=== PATIENT | male | born 1970 ===

== ENCOUNTER 2018-08-28 18:22 | Outpatient (REF) | payer OTHER, SELFPAY ==
[2018-08-28 22:26] LABS: Anion Gap 9.6 mmol/L (3-11); BUN 20 mg/dL (7-18); CO2 27.4 mmol/L (21.0-32.0); CREATININE 1.04 mg/dL (0.70-1.30); Calcium 9.3 mg/dL (8.5-10.1); Chloride 102 mmol/L (98-107); Glucose 107 mg/dL (70-100); Sodium 139 mmol/L (136-145)
[2018-08-28 22:56] LABS: COMMENT (LAB VIEW ONLY) 146.31 mg/dL; Microalb ug/mg Crea 4.6 ug/mg Cr
== END 2018-08-28 18:42 ==
LOC: NCHCN 18:22
PROVIDERS: PCP Family Medicine; Visit Provider Registered Nurse
DX: I10 Essential (primary) hypertension (principal)
CPT/HCPCS: 80048; 82043; 82570

== ENCOUNTER 2019-01-05 18:17 | Outpatient (REF) | payer OTHER, SELFPAY ==
[2019-01-05 21:27] LABS: Anion Gap 12.3 mmol/L (3-11); BUN 18 mg/dL (7-18); CO2 24.7 mmol/L (21.0-32.0); CREATININE 1.08 mg/dL (0.70-1.30); Calcium 8.9 mg/dL (8.5-10.1); Chloride 106 mmol/L (98-107); Glucose 120 mg/dL (70-100); Potassium 3.9 mmol/L (3.5-5.1); Sodium 143 mmol/L (136-145)
== END 2019-01-05 18:37 ==
LOC: NCHCN 18:17
PROVIDERS: PCP Family Medicine; Visit Provider Registered Nurse
DX: I10 Essential (primary) hypertension (principal)
CPT/HCPCS: 80048

== ENCOUNTER 2019-04-13 18:05 | Outpatient (REF) | payer OTHER, SELFPAY ==
[2019-04-13 21:34] LABS: Calculated LDL 83 mg/dL; Cholesterol 165 mg/dL (<200); HDL Cholesterol 34 mg/dL (40-60); Triglyceride 242 mg/dL (<150)
== END 2019-04-13 18:25 ==
LOC: NCHCN 18:05
PROVIDERS: PCP Family Medicine; Visit Provider Registered Nurse
DX: Z00.00 Encounter for general adult medical examination without abnormal findings (principal); I10 Essential (primary) hypertension; F17.200 Nicotine dependence, unspecified, uncomplicated
CPT/HCPCS: 80061

== ENCOUNTER 2020-08-03 17:13 | Outpatient (REF) | payer OTHER, SELFPAY ==
[2020-08-03 22:39] LABS: Anion Gap 10.7 mmol/L (3-11); BUN 17 mg/dL (7-18); CO2 27.3 mmol/L (21.0-32.0); CREATININE 1.1 mg/dL (0.70-1.30); Chloride 105 mmol/L (98-107); Glucose 93 mg/dL (74-106); Potassium 3.9 mmol/L (3.5-5.1); Sodium 143 mmol/L (136-145)
[2020-08-03 22:43] LABS: Hemoglobin A1C 5.8 % (<5.7)
[2020-08-05 09:56] LABS: Hepatitis C Ab w Rflx HCV PCR Negative (Negative)
== END 2020-08-03 17:14 | disposition home or self-care (01) ==
LOC: NCHCN 17:13
PROVIDERS: PCP Family Medicine; Visit Provider Registered Nurse
DX: I10 Essential (primary) hypertension (principal); E66.9 Obesity, unspecified; Z11.59 Encounter for screening for other viral diseases
CPT/HCPCS: 80048; 86803; 83036

== ENCOUNTER 2021-09-07 17:09 | Outpatient (REF) | payer OTHER, SELFPAY ==
[2021-09-07 21:12] LABS: ALT 35 U/L (16-63); AST 21 U/L (15-37); Albumin 4.3 g/dL (3.4-5.0); Alkaline Phosphatase 88 U/L (46-116); Anion Gap 8.1 mmol/L (3-11); BUN 20 mg/dL (7-18); Bilirubin, Total 0.6 mg/dL (0.2-1.0); CO2 25.9 mmol/L (21.0-32.0); CREATININE 1.1 mg/dL (0.70-1.30); Calcium 9.2 mg/dL (8.5-10.1); Chloride 103 mmol/L (98-107); Glucose 101 mg/dL (74-106); Potassium 3.9 mmol/L (3.5-5.1); Sodium 137 mmol/L (136-145); Total Protein 7.4 g/dL (6.4-8.2)
== END 2021-09-07 17:10 | disposition home or self-care (01) ==
LOC: NCHCN 17:09
PROVIDERS: PCP Family Medicine; Visit Provider Registered Nurse
DX: R73.03 Prediabetes (principal); I10 Essential (primary) hypertension
CPT/HCPCS: 80053; 83036

== ENCOUNTER 2022-03-08 17:47 | Outpatient (REF) | payer OTHER, SELFPAY ==
[2022-03-08 21:56] LABS: Anion Gap 8.6 mmol/L (3-11); BUN 16 mg/dL (7-18); CO2 27.4 mmol/L (21.0-32.0); CREATININE 1.1 mg/dL (0.70-1.30); Chloride 102 mmol/L (98-107); Estimated GFR 80.77 (mL/min/1.73m2); Glucose 101 mg/dL (74-106); Sodium 138 mmol/L (136-145)
[2022-03-08 22:26] LABS: Hemoglobin A1C 6.1 % (<5.7)
== END 2022-03-08 17:48 | disposition home or self-care (01) ==
LOC: NCHCN 17:47
PROVIDERS: PCP Family Medicine; Visit Provider Registered Nurse
DX: R73.03 Prediabetes (principal); I10 Essential (primary) hypertension
CPT/HCPCS: 80048; 83036

== ENCOUNTER 2022-12-26 18:52 | Outpatient (REF) | payer OTHER, SELFPAY ==
[2022-12-26 22:46] LABS: Anion Gap 11.7 mmol/L (3-11); BUN 16 mg/dL (7-18); CO2 24.3 mmol/L (21.0-32.0); CREATININE 1.1 mg/dL (0.70-1.30); Calculated LDL 59 mg/dL (<100); Chloride 101 mmol/L (98-107); Cholesterol 133 mg/dL (<200); Estimated GFR 80.27 (mL/min/1.73m2); Glucose 87 mg/dL (74-106); HDL Cholesterol 42 mg/dL (40-60); Potassium 3.6 mmol/L (3.5-5.1); Sodium 137 mmol/L (136-145); Triglyceride 164 mg/dL (<150)
[2022-12-26 22:49] LABS: Hemoglobin A1C 6.3 % (<5.7)
[2022-12-27 19:25] LABS: PSA, Screening 1.3 ng/mL (<=3.5)
[2022-12-28 09:50] LABS: Hepatitis C Ab w Rflx HCV PCR Negative (Negative)
[2022-12-28 10:19] LABS: HIV-1/2 Ag & Ab Screen Negative (Negative)
== END 2022-12-26 18:53 | disposition home or self-care (01) ==
LOC: NCHCN 18:52
PROVIDERS: PCP Family Medicine; Visit Provider Nurse Practitioner Family
DX: Z11.59 Encounter for screening for other viral diseases (principal); I10 Essential (primary) hypertension; E66.9 Obesity, unspecified; R73.03 Prediabetes
CPT/HCPCS: 80048; 80061; 84153; 86803; 87389; 83036

== ENCOUNTER 2023-08-28 17:54 | Outpatient (REF) | payer OTHER, SELFPAY ==
[2023-08-28 21:48] LABS: COMMENT (LAB VIEW ONLY) 259.93 mg/dL; Microalb ug/mg Crea 5.5 ug/mg Cr
== END 2023-08-28 17:55 | disposition home or self-care (01) ==
LOC: NCHCN 17:54
PROVIDERS: PCP Family Medicine; Visit Provider Nurse Practitioner Family
DX: I10 Essential (primary) hypertension (principal)
CPT/HCPCS: 82043; 82570

== ENCOUNTER 2023-12-12 08:12 | Outpatient (REF) | payer OTHER, SELFPAY ==
--- OUTSIDE RECORDS SUMMARY | 2023-12-12 08:13 | XMS_ITS | Clinical Summary ---
Author Organization [facility] Address [address] [place] [address] Care Team Providers Care Smoking Pipe Mounter Name Role Phone Deonte Esparza MD Primary Care Provider [phone] Allergies Active Allergy Reactions Criticality Noted Date Comments Penicillins Nausea And Vomiting 10/27/2015 Medications Medication Sig Dispensed Refills Start Date End Date Status gabapentin (NEURONTIN) 300 mg capsule Take 300 mg by mouth 3 times daily. Active ibuprofen (MOTRIN) 600 mg tablet Take 600 mg by mouth 3 times daily. Active amLODIPine (NORVASC) 5 mg tablet Take 5 mg by mouth daily. Active hydrochlorothiazide (HYDRODIURIL) 25 mg tablet Take 12.5 mg by mouth daily. Active valsartan (DIOVAN) 160 mg tablet Take 320 mg by mouth daily. Active Active Problems Problem Noted Date Diagnosed Date Low back pain radiating to right leg 10/27/2015 Surgical History Surgery Date Site/Laterality Comments HERNIA REPAIR X2 VASECTOMY Medical History Medical History Date Comments Hypertension Family History Medical History Relation Comments Cancer Mother Relation Status Comments Father Mother Alive Social History Tobacco Use Types Packs/Day Years Used Date Smoking Tobacco: Every Day Cigarettes 1 30 Smokeless Tobacco: Never Alcohol Use Standard Drinks/Week Comments No 0 (1 standard drink = 0.6 oz pur e alcohol) Interpersonal Safety Answer Date Record ed Physically Hurt Never 11/22/2019 Verbally Threaten Not on file 11/22/2019 Sex and Gender Information Value Date Recorded Sex Assigned at Not on file Gender Identity Not on file Sexual Orientation Not on file Obstetrics History Last Filed Vital Signs Vital Sign Reading Time Taken Comments Blood Pressure - - Pulse - - Temperature - - Respiratory Rate - - Oxygen Saturation - - Inhaled Oxygen Concentration - - Weight 111.1 kg (245 lb) 10/27/2015 1355 EDT Height 188 cm (6' 2) 10/27/2015 1355 EDT Body Mass Index 31.46 10/27/2015 1355 EDT Plan of Treatment Health Maintenance Due Date Last Done Comments Pneumococcal Immunization (1 of 2 - PCV) 08/27/1975 Hepatitis B Vaccine (1 of 3 - 19+ 3-dose series) 1988 COVID-19 Vaccine ( season) 2022 Hepatitis C Screen Completed 12/26/2022, 08/03/2020 Procedures Procedure Name Priority Date/Time Associated Diagnosis Comments HEPATITIS C AB W REFLEX TO HCV RNA BY PCR Routine 12/26/2022 15:45 EDT from Last 3 Months or Most Recently Relevant to Health Maintenance Results * HEPATITIS C AB W REFLEX TO HCV RNA BY PCR (12/26/2022 15:45 EDT) Hep C Antibody Negative Negative 12/28/2022 9:45 EDT [facility] Blood VENOUS BLOOD / Unknown 12/26/2022 15:45 EDT 12/27/2022 17:57 EDT Provider Outr Resulting Lab CHEMISTRY & BLOOD GAS ORDERABLES [facility] [address] [place] [address] from Last 3 Months or Most Recently Relevant to Health Maintenance Care Teams Smoking Pipe Mounter Relationship Specialty Start Date End Date Deonte Esparza MD PCP - General 10/26/15
--- OUTSIDE RECORDS SUMMARY | 2023-12-12 08:13 | XMS_ITS | Encounter Summary ---
Author Organization [facility] Address [address] [place] [address] Care Team Providers Care Oil Derrick Operator Name Role Phone Deonte Esparza MD Primary Care Provider [phone] Reason for Visit * Reason Comments Back Pain * Consult, Test and Treat (Routine) - Closed Specialty Diagnoses / Procedures Referred By Contarnoldo juarez Referred To Contact Orthopedic Surgery Diagnoses Low back pain Deonte Esparza MD [address] [facility] [address] [place] [address] [facility] [address] [place] [address] Referral ID Status Reason Start Date Expiration Date Visits Re quested Visits Authorized [id number] Closed 1 1 Encounter Details Date Type Department Care Team (Late st Contact Info) Description 10/27/2015 14:00 EDT Office Visit [facility] Sp[facility] Program - [address] [address] [address] Brad Rios PA-C [address] [facility] [place] [address] Low back pain radiating to right leg (Primary Dx) Social History Tobacco Use Types Packs/Day Years Used Date Smoking Tobacco: Every Day Cigarettes 1 30 Smokeless Tobacco: Never Alcohol Use Standard Drinks/Week Comments No 0 (1 standard drink = 0.6 oz pur e alcohol) Sex and Gender Information Value Date Recorded Sex Assigned at Not on file Gender Identity Not on file Sexual Orientation Not on file documented as of this encounter Last Filed Vital Signs Vital Sign Reading Time Taken Comments Blood Pressure - - Pulse - - Temperature - - Respiratory Rate - - Oxygen Saturation - - Inhaled Oxygen Concentration - - Weight 111.1 kg (245 lb) 10/27/2015 1355 EDT Height 188 cm (6' 2) 10/27/2015 1355 EDT Body Mass Index 31.46 10/27/2015 1355 EDT documented in this encounter Functional Status Functional Status Response Date of Assess ment Because of a physical, menta l, or emotional condition, does this person have difficulty doing errands alone such as visiting a doctor's office or shopping? No 10/27/2015 Cognitive Status Response Date of Assessm ent Because of a physical, menta l, or emotional condition, does this person have serious difficulty concentrating, remembering, or making decisions? No 10/27/2015 documented as of this encounter Discharge Diagnoses Diagnosis M54.5 Low back pain-M54.5[ICD-10-CM] documented in this encounter Progress Notes * Brad Rios PA - 10/27/2015 1416 EDT Bull Walsh is being seen as a consultation from Dr. Esparza. Chief Complaint Patient presents with ??? Back Pain The encounter diagnosis was Low back pain radiating to right leg. HPI Mr. Walsh is a 45 y.o. pleasant male who presents to the clinic today with 100% RLE pain affecting the anterior aspect of his thigh & the anterior aspect of his lower leg. The patient reports acute onset of symptoms that started in April 2015, initially as a right buttock pain that soon moved into the anterior aspect of the thigh and lower leg of RLE. He has improved by 60% with the help of Gabapentin 300 mg TID. Symptoms wax and wane, but they are present everyday. He had a couple of sessions of PT, which did not help. He has not tried CHIRO or injections. Swimming and walking alleviate his symptoms. Bending and sitting such as in driving aggravate his symptoms. He rates his pain as 2/10. HPI Patient Active Problem List Diagnosis ??? Low back pain radiating to right leg Past Medical History Diagnosis Date ??? Hypertension Past Surgical History Procedure Laterality Date ??? Hernia repair X2 ??? Vasectomy History Substance Use Topics ??? Smoking status: Current Every Day Smoker -- 1.00 packs/day for 30 years ??? Smokeless tobacco: Never Used ??? Alcohol Use: No Family History Problem Relation Age of Onset ??? Cancer Mother Current Outpatient Prescriptions Medication Sig Dispense Refill ??? amLODIPine (NORVASC) 5 mg tablet Take 5 mg by mouth daily. ??? gabapentin (NEURONTIN) 300 mg capsule Take 300 mg by mouth 3 times daily. ??? hydrochlorothiazide (HYDRODIURIL) 25 mg tablet Take 12.5 mg by mouth daily. ??? ibuprofen (MOTRIN) 600 mg tablet Take 600 mg by mouth 3 times daily. ??? valsartan (DIOVAN) 160 mg tablet Take 320 mg by mouth daily. No current facility-administered medications for this visit. Allergies Allergen Reactions ??? Penicillins Nausea And Vomiting Review of Systems Constitutional: Positive for activity change. Negative for unexpected weight change. Eyes: Negative for visual disturbance. Respiratory: Negative for chest tightness. Cardiovascular: Negative for chest pain. Gastrointestinal: Negative for constipation. Genitourinary: Negative for difficulty urinating. Musculoskeletal: Positive for back pain. Negative for neck pain. Skin: Negative for rash. Neurological: Negative for numbness. Psychiatric/Behavioral: Negative for behavioral problems and agitation. Physical Exam Constitutional: He is oriented to person, place, and time. He appears well- developed and well-nourished. HENT: Head: Normocephalic and atraumatic. Eyes: EOM are normal. Cardiovascular: Normal rate. Pulmonary/Chest: Effort normal. Neurological: He is alert and oriented to person, place, and time. Skin: Skin is warm and dry. No rash noted. Psychiatric: He has a normal mood and affect. His behavior is normal. Back Exam Comments: GAIT: Normal. HEEL & TOE WALKING: NEG. LESIONS, RASHES OR HAIR MEGHAN: NEG. FROM: TENDERNESS ON PALPATION: NEG. STRENGTH: 5/5 REFLEXES: Patellar 1/4 B/L; Achilles 1/4 B/L. BABINSKI: Down. CLONUS: NEG. DP: 2/2. SENSATION: Intact. SLR RIGHT: NEG. LEFT: NEG. HIP ROM: Full. DIXIE'S: NEG. Neurologic Exam Mental Status Oriented to person, place, and time. Cranial Nerves CN III, IV, Extraocular motions are normal. Today, 10/27/2015, I ordered plain radiographs and I independently reviewed the following: Plain radiographs (AP/Lat/Flex/Ex): 1. Five (5) non-rib bearing lumbar vertebrae 2. Grade I retrolisthesis of L4 on L5 remaining unchanged on Flex-Ex 3. Facet arthropathy of the lower lumbar spine 4. Disc height reduction at L4-L5 conistent with degenerative disc disease 5. No fractures or pars defects noted MRI from prior work up in August 2015: L3-L4: right paracentral disc herniation impinging upon the right L4 traverse root Multilevel degenerative disc and facet changes Assessment 45 y.o. male with RLE pain along the L4 dermatome most likely radicular in nature due to impingement of the traverse L4 nerve root secondary to right paracentral disc herniation at L3-L4 level. He has been doing well with taking Gabapentin and does not think that any intervention is necessary at this point. He has agreed to the following plan. No orders of the defined types were placed in this encounter. Plan: 1. Continue activity as tolerated 2. Return to clinic PRN - if symptoms worsen, proceed with RIGHT L4-L5 TFESI (discussed with patient today) CC: Dr. Isaias Vasques was the attending physician available in the clinic today if needed. A consultation was not required. documented in this encounter Plan of Treatment Not on file documented as of this encounter Visit Diagnoses Diagnosis Low back pain radiating to right leg- Primary Lumbago documented in this encounter Historical Medications * This list may reflect changes made after this encounter. Medication Sig Dispensed Refills Start Date End Date valsartan (DIOVAN) 160 mg tablet Take 320 mg by mouth daily. hydrochlorothiazide (HYDRODIURIL) 25 mg tablet Take 12.5 mg by mouth daily. amLODIPine (NORVASC) 5 mg tablet Take 5 mg by mouth daily. ibuprofen (MOTRIN) 600 mg tablet Take 600 mg by mouth 3 times daily. gabapentin (NEURONTIN) 300 mg capsule Take 300 mg by mouth 3 times daily. added in this encounter Care Teams Oil Derrick Operator Relationship Specialty Start Date End Date Deonte Esparza MD PCP - General 10/26/15 documented as of this encounter
--- OUTSIDE RECORDS SUMMARY | 2023-12-12 08:13 | XMS_ITS | Encounter Summary ---
Author Organization [facility] Address [address] [place] [address] Care Team Providers Care Air Conditioning Mechanic Name Role Phone Christel Mishra MD Primary Care Provider [phone] Deonte Esparza MD Primary Care Provider [phone] Encounter Details Date Type Department Care Team (Late st Contact Info) Description 2015 Historical Results Only [facility] Radiology Results [address] [place], [place] [id number] Deonte Esparza MD [address] [place] [address] Social History Tobacco Use Types Packs/Day Years Used Date Smoking Tobacco: Never Assessed Sex and Gender Information Value Date Recorded Sex Assigned at Not on file Gender Identity Not on file Sexual Orientation Not on file documented as of this encounter Plan of Treatment Not on file documented as of this encounter Procedures Procedure Name Priority Date/Time Associated Diagnosis Comments MR LUMBAR SPINE WO CONTRAST 2015 15:13 EDT documented in this encounter Results * MR LUMBAR SPINE WO CONTRAST (2015 15:13 EDT) Anatomical Region Laterality Modality Other 2015 15:1 3 EDT Narrative 2015 15:25 EDT ? EXAM: MAGNETIC RESONANCE IMAGING/LUMBAR S EX. D/ (1100) ? CLINICAL INFORMATION: ? M54.16 LUMBAR RADICULITIS ? INDICATION: M54.16 LUMBAR RADICULITIS ? COMPARISON: None. ? TECHNIQUE: Noncontrast MRI scan lumbar spine was performed. Sagittal ? T1, T2, STIR and axial T1 and T2-weighted scans were obtained. ? FINDINGS: Degenerative disc disease and facet arthritis is present ? throughout the lumbar spine. There are minimal posterior disc bulges ? at L1-L2 and L5-S1. The conus terminates at the level of the L1 ? vertebral body. ? At L2-L3 there is disc space height loss, decreased disc signal and ? Modic type I endplate signal changes. There is a slightly asymmetric ? left-sided posterior broad-based disc mild protrusion, which along ? with bilateral facet hypertrophy, results in mild spinal stenosis. ? At L3-L4 there is disc space height loss, decreased disc signal, an ? L3 inferior endplate Schmorl's node and Modic type II endplate signal ? change. There is a posterior broad-based disc protrusion with a small ? right-sided posterolateral focal disc extrusion with an 8-mm diameter ? extruded disc fragment extending caudally 7 mm below the L4 superior ? endplate. This extruded disc fragment abuts and displaces the right ? L4 nerve root. There is bilateral facet hypertrophy and mild spinal ? stenosis. ? At L4-L5 there is disc space height loss, decreased disc signal and ? asymmetric right-sided mild posterior broad-based disc protrusion as ? well as bilateral facet hypertrophy. No significant spinal stenosis ? or nerve root impingement is identified. ? IMPRESSION: ? 1. Lumbar spondylosis. ? 2. Right-sided posterolateral focal disc extrusion with caudal ? migration at L3-L4 resulting in ? impingement of the right L4 nerve root. ? REPORT SIGNED IN OTHER VENDOR SYSTEM 2015 ?Reported By: Brad Knight MD ? CC: ? Transcribed Date/Time: 2015 (1525) ? Guillotine Trimmer: SCR ? Printed Date/Time: 10/02/2018 (2227) ? PAGE 1 ? Signed Report ? Procedure Note Brad Knight MD - 02/25/2019 EXAM: MAGNETIC RESONANCE IMAGING/LUMBAR S EX. D/ (1100) CLINICAL INFORMATION: M54.16 LUMBAR RADICULITIS INDICATION: M54.16 LUMBAR RADICULITIS COMPARISON: None. TECHNIQUE: Noncontrast MRI scan lumbar spine was performed.Sagittal T1, T2, STIR and axial T1 and T2-weighted scans were obtained. FINDINGS: Degenerative disc disease and facet arthritis is present throughout the lumbar spine. There are minimal posterior discbulges at L1-L2 and L5-S1. The conus terminates at the level of the L1 vertebral body. At L2-L3 there is disc space height loss, decreased disc signal and Modic type I endplate signal changes. There is a slightlyasymmetric left-sided posterior broad-based disc mild protrusion, which along with bilateral facet hypertrophy, results in mild spinal stenosis. At L3-L4 there is disc space height loss, decreased disc signal, an L3 inferior endplate Schmorl's node and Modic type II endplatesignal change. There is a posterior broad-based disc protrusion with asmall right-sided posterolateral focal disc extrusion with an 8-mmdiameter extruded disc fragment extending caudally 7 mm below the [id number] endplate. This extruded disc fragment abuts and displaces the right L4 nerve root. There is bilateral facet hypertrophy and mild spinal stenosis. At L4-L5 there is disc space height loss, decreased disc signal and asymmetric right-sided mild posterior broad-based disc protrusionas well as bilateral facet hypertrophy. No significant spinal stenosis or nerve root impingement is identified. IMPRESSION: 1. Lumbar spondylosis. 2. Right-sided posterolateral focal disc extrusion with caudal migration at L3-L4 resulting in impingement of the right L4 nerve root. REPORT SIGNED IN OTHER VENDOR SYSTEM 2015 Reported By: Brad Knight MD CC: Transcribed Date/Time: 2015 (1525) Guillotine Trimmer: Printed Date/Time: 10/02/2018 (5709) PAGE 1 Signed Report Deonte Esparza MD IMG MRI ORDERABLES documented in this encounter Visit Diagnoses Not on filedocumented in this encounter Care Teams Air Conditioning Mechanic Relationship Specialty Start Date End Date Christel Mishra MD [address] [place] [id number] PCP - General 02/26/15 10/25/15 Deonte Esparza MD [address] [place] [id number] PCP - General 10/26/15 documented as of this encounter
--- OUTSIDE RECORDS SUMMARY | 2023-12-12 08:13 | XMS_ITS | Encounter Summary ---
Author Organization [facility] Address [address] [place] [address] Care Team Providers Care Animal Keeper Head Name Role Phone Deonte Esparza MD Primary Care Provider [phone] Encounter Details Date Type Department Care Team (Late st Contact Info) Description 08/04/2020 Lab Requisition [facility] Pathology & Laboratory Medicine - [facility] [address] [place] [address] Outr Resulting Lab, Provider Social History Tobacco Use Types Packs/Day Years [...] on file documented as of this encounter Functional Status Functional Status Response [...] No 10/27/2015 documented as of this encounter Plan of Treatment Not on file documented as of this encounter Procedures Procedure Name Priority Date/Time Associated Diagnosis Comments HEPATITIS C AB W REFLEX TO HCV RNA BY PCR Routine 08/03/2020 17:05 EDT documented in this encounter Results * HEPATITIS C AB W REFLEX TO HCV RNA BY PCR (08/03/2020 17:05 EDT) Hep C Antibody Negative Negative 08/05/2020 9:51 EDT [facility] Blood VENOUS BLOOD / Unknown 08/03/2020 17:05 EDT 08/04/2020 16:23 EDT Provider Outr Resulting Lab CHEMISTRY & BLOOD GAS ORDERABLES [facility] [address] [place] [address] documented in this encounter Visit Diagnoses Not on filedocumented in this encounter Care Teams Animal Keeper Head Relationship Specialty Start Date End Date Deonte Esparza MD PCP - General 10/26/15 documented as of this encounter
--- OUTSIDE RECORDS SUMMARY | 2023-12-12 08:13 | XMS_ITS | Encounter Summary ---
Author Organization [facility] Address [address] [place] [address] Care Team Providers Care Scrap Materials Buyer Name Role Phone Deonte Esparza MD Primary Care Provider [phone] Encounter Details Date Type Department Care Team (Late st Contact Info) Description 12/27/2022 Lab Requisition [facility] Pathology & Laboratory Medicine - [facility] [address] [place] [address] Outr Resulting Lab, Provider Social History Tobacco [...] RNA BY PCR Routine 12/26/2022 15:45 EDT PSA TOTAL, DIAGNOSTIC Routine 12/26/2022 15:45 EDT documented in this encounter Results * PSA TOTAL, DIAGNOSTIC (12/26/2022 15:45 EDT) PSA 1.3 <=3.5 ng/mL 12/27/2022 19:21 EDT [facility] Blood VENOUS BLOOD / Unknown 12/26/2022 15:45 EDT 12/27/2022 17:57 EDT Narrative [facility] - 12/27/2022 19:21 EDT NOTE: Serum PSA concentration should not be interpreted as absolute evidence for the presence or absence of malignant disease. Assayed on [employer] XPT using chemiluminescent technology.??Values obtained by using different assay methods cannot be used interchangeably. Provider Outr Resulting Lab CHEMISTRY & BLOOD GAS ORDERABLES Performing Organization Address City/[facility]/ZIP Co de Phone Number [facility] [address] [place] [address] * HEPATITIS C AB W REFLEX TO HCV RNA BY PCR (12/26/2022 15:45 EDT) Hep C Antibody Negative Negative 12/28/2022 9:45 EDT [facility] Blood VENOUS BLOOD / Unknown 12/26/2022 15:45 EDT 12/27/2022 17:57 EDT Provider Outr Resulting Lab CHEMISTRY & BLOOD GAS ORDERABLES [facility] [address] [place] [address] documented in this encounter Visit Diagnoses Not on filedocumented in this encounter Care Teams Scrap Materials Buyer Relationship Specialty Start Date End Date Deonte Esparza MD PCP - General 10/26/15 documented as of this encounter
--- OUTSIDE RECORDS SUMMARY | 2023-12-12 08:13 | XMS_ITS | Encounter Summary ---
Author Organization [facility] Address [address] [place] [address] Care Team Providers Care Hoe Worker Name Role Phone Christel Mishra MD Primary Care Provider [phone] Encounter Details Date Type Department Care Team (Late st Contact Info) Description 09/07/2015 Results Only Imaging [facility] [phone] Unknown, Provider, Social History Tobacco Use Types Packs/Day Years Used Date Smoking Tobacco: Never Assessed Sex and Gender Information Value Date Recorded Sex Assigned at Not on file Gender Identity Not on file Sexual Orientation Not on file documented as of this encounter Plan of Treatment Pending Results Name Type Priority Associated Diagnoses Date /Time OUTSIDE IMAGES - MR NEURO Imaging 09/07/2015 9:15 EDT documented as of this encounter Visit Diagnoses Not on filedocumented in this encounter Care Teams Hoe Worker Relationship Specialty Start Date End Date Christel Mishra MD [address] [place] [id number] PCP - General 02/26/15 10/25/15 documented as of this encounter
--- OUTSIDE RECORDS SUMMARY | 2023-12-12 08:13 | XMS_ITS | Referral Summary ---
Author Organization [facility] Address [address] [place] [address] Care Team Providers Care Jig Operator Name Role Phone Deonte Esparza MD Primary Care Provider [phone] Allergies Active Allergy Reactions Criticality Noted Date [...] back pain radiating to right leg 10/27/2015 Social History Tobacco Use Types Packs/Day Years [...] on file Sexual Orientation Not on file Last Filed Vital Signs Vital Sign Reading Time Taken Comments Blood Pressure - - Pulse - - Temperature - - Respiratory Rate - - Oxygen Saturation - - Inhaled Oxygen Concentration - - Weight 111.1 kg (245 lb) 10/27/2015 1355 EDT Height 188 cm (6' 2) 10/27/2015 1355 EDT Body Mass Index 31.46 10/27/2015 1355 EDT Functional Status Functional Status Response Date of [...] concentrating, remembering, or making decisions? No 10/27/2015 Plan of Treatment Not on file Procedures Procedure Name Priority Date/Time Associated Diagnosis Comments HEPATITIS C AB W REFLEX TO HCV RNA BY PCR Routine 12/26/2022 15:45 EDT from Last 3 Months or Most Recently Relevant to Health Maintenance Results * HEPATITIS C AB W REFLEX TO HCV RNA BY PCR (12/26/2022 15:45 EDT) Hep C Antibody Negative Negative 12/28/2022 9:45 EDT [facility] Blood VENOUS BLOOD / Unknown 12/26/2022 15:45 EDT 12/27/2022 17:57 EDT Provider Outr Resulting Lab CHEMISTRY & BLOOD GAS ORDERABLES [facility] [address] [place] [address] from Last 3 Months or Most Recently Relevant to Health Maintenance Care Teams Jig Operator Relationship Specialty Start Date End Date Deonte Esparza MD PCP - General 10/26/15
--- OUTSIDE RECORDS SUMMARY | 2023-12-12 08:13 | XMS_ITS | Encounter Summary ---
Author Organization [facility] Address [address] [place] [address] Care Team Providers Care Ambulatory Service Representative Name Role Phone Deonte Esparza MD Primary Care Provider [phone] Encounter Details Date Type Department Care Team (Late st Contact Info) Description 12/27/2022 Lab Requisition [facility] Pathology & Laboratory Medicine - [facility] [address] [place] [address] Outr Resulting Lab, Provider Social History Tobacco [...] Procedure Name Priority Date/Time Associated Diagnosis Comments HIV 1/2 ANTIGEN AND ANTIBODY, 4TH GENERATION Routine 12/26/2022 15:45 EDT documented in this encounter Results * HIV 1/2 ANTIGEN AND ANTIBODY, 4TH GENERATION (12/26/2022 15:45 EDT) HIV 1 and 2 Antibody/p24 Antigen, 4th Generation Negative Negative 12/28/2022 10:13 EDT [facility] Comment:If acute HIV-1 infec tion is suspected in a high risk patient, submit plasma specimen for HIV-1 RNA quantitation test. Blood VENOUS BLOOD / Unknown 12/26/2022 15:45 EDT 12/27/2022 17:57 EDT Narrative [facility] - 12/28/2022 10:13 EDT Fourth Generation assay performed on the [employer] XPT. Provider Outr Resulting Lab IMMUNOLOGY A ND SEROLOGY ORDERABLES [facility] [address] [place] [address] documented in this encounter Visit Diagnoses Not on filedocumented in this encounter Care Teams Ambulatory Service Representative Relationship Specialty Start Date End Date Deonte Esparza MD PCP - General 10/26/15 documented as of this encounter
--- OUTSIDE RECORDS SUMMARY | 2023-12-12 08:13 | XMS_ITS | Encounter Summary ---
Author Organization [facility] Address [address] [place] [address] Care Team Providers Care Artist Agent Name Role Phone Christel Mishra MD Primary Care Provider [phone] Encounter Details Date Type Department Care Team (Latest Contact Info) Description 2015 22:08 EDT - 2015 23:59 EDT Hospital Encounter [facility] [address] [place] [address] Unknown, Provider, Discharge Disposition: Home or Self Care Social History Tobacco Use Types Packs/Day Years Used Date Smoking Tobacco: Never Assessed Sex and Gender Information Value Date Recorded Sex Assigned at Not on file Gender Identity Not on file Sexual Orientation Not on file documented as of this encounter Discharge Disposition Disposition Code Departure Means Destination Home or Self Usp documented in this encounter Plan of Treatment Not on file documented as of this encounter Visit Diagnoses Not on filedocumented in this encounter Care Teams Artist Agent Relationship Specialty Start Date End Date Christel Mishra MD [address] [place] [phone] PCP - General 02/26/15 10/25/15 documented as of this encounter
--- OUTSIDE RECORDS SUMMARY | 2023-12-12 08:13 | XMS_ITS | Encounter Summary ---
Author Organization [facility] Address [address] [place] [address] Care Team Providers Care Cheese Grader Name Role Phone Deonte Esparza MD Primary Care Provider [phone] Encounter Details Date Type Department Care Team (Latest Contact Info) Description 05/24/2018 12:57 EST - 05/24/2018 23:59 EST Hospital Encounter [facility] [address] [place] [address] Unknown, Provider, Discharge Disposition: Home or Self [...] No 10/27/2015 documented as of this encounter Medications at Time of Discharge Medication Sig Dispensed Refills Start Date End Date amLODIPine (NORVASC) 5 mg tablet Take 5 mg by mouth daily. gabapentin (NEURONTIN) 300 mg capsule Take 300 mg by mouth 3 times daily. hydrochlorothiazide (HYDRODIURIL) 25 mg tablet Take 12.5 mg by mouth daily. ibuprofen (MOTRIN) 600 mg tablet Take 600 mg by mouth 3 times daily. valsartan (DIOVAN) 160 mg tablet Take 320 mg by mouth daily. documented as of this encounter Discharge Disposition Disposition Code Departure Means Destination Home or Self Jail documented in this encounter Plan of Treatment Not on file documented as of this encounter Visit Diagnoses Not on filedocumented in this encounter Care Teams Cheese Grader Relationship Specialty Start Date End Date Deonte Esparza MD PCP - General 10/26/15 documented as of this encounter
--- OUTSIDE RECORDS SUMMARY | 2023-12-12 08:13 | XMS_ITS | Encounter Summary ---
Author Organization [facility] Address [address] [place] [address] Care Team Providers Care Black Ash Burner Operator Name Role Phone Unavailable Primary Care Provider Unavailabl e Reason for Visit * Reason Onset Date Comments Back Pain 06/02/2013 Encounter Details Date Type Department Care Team (Late st Contact Info) Description 06/02/2013 Telephone [facility] Spine Program - [address] [place] [address] Shantanu Porter MD [address] [place] [address] [place] [address] Back Pain Social History Tobacco Use Types Packs/Day Years Used Date Smoking Tobacco: Never Assessed Sex and Gender Information Value Date Recorded Sex Assigned at Not on file Gender Identity Not on file Sexual Orientation Not on file documented as of this encounter Miscellaneous Notes * Telephone Encounter - Shantanu Porter MD - 06/02/2013 2915 EST D/w Dr Devries in ED @ [facility]: -pt has history of L5 disc herniation, non-op treatment recommended by Dr Garrison some years ago -he wants to be seen again by Dr Garrison: I explained that she's retired a few yrs ago; he'd like popeye seen in our spine clinic as well -I asked Dr Fofana to ask pt to call [phone] to request a new pt appt -this should be with a non-op provider -in preparation for that visit, obtaining any relevant, available records (?through [facility], ?through Dr Garrison, ?through PCP) would be helpful documented in this encounter Plan of Treatment Not on file documented as of this encounter Visit Diagnoses Not on filedocumented in this encounter
--- OUTSIDE RECORDS SUMMARY | 2023-12-12 08:13 | XMS_ITS | Encounter Summary ---
Author Organization [facility] Address [address] [place] [address] Care Team Providers Care Billet Heater Operator Name Role Phone Deonte Esparza MD Primary Care Provider [phone] Encounter Details Date Type Department Care Team (Late st Contact Info) Description 05/24/2018 Historical Results Only [facility] Radiology Results [address] [place] [address] Christel Pearl MD [address] [place] [address] Social History Tobacco Use Types Packs/Day Years [...] Procedure Name Priority Date/Time Associated Diagnosis Comments XR CHEST 2 VIEWS 05/24/2018 13:2 1 EST documented in this encounter Results * XR CHEST 2 VIEWS (05/24/2018 13:21 EST) Anatomical Region Laterality Modality Other 05/24/2018 13:2 1 EST Narrative 05/24/2018 13:21 EST ? EXAM: RADIOLOGY EXPRESS CARE/EXP CARE SHARI EX. D/ (1232) ? CLINICAL INFORMATION: ? R05 COUGH ? EXAM: ?XR Chest, 2 Views ? EXAM DATE/TIME: ?05/24/2018 12:25 PM ? CLINICAL HISTORY: ?47 years old, male; Signs and symptoms; Cough; Additional info: R05 ? cough ? TECHNIQUE: ?XR of the chest, 2 views. ? COMPARISON: ?No relevant prior studies available. ? FINDINGS: ?Lungs: Unremarkable. No consolidation. ?Pleural space: Unremarkable. No pleural effusion. No pneumothorax. ?Heart/Mediastinum: Unremarkable. No cardiomegaly. ?Bones/joints: Unremarkable. ? IMPRESSION: ? No acute findings. ? REPORT SIGNED IN OTHER VENDOR SYSTEM 05/24/2018 ?Reported By: Thony Donato MD ? CC: ? Transcribed Date/Time: 05/24/2018 (1321) ? Pharmacy Specialist: ? Printed Date/Time: 10/12/2018 (0530) ? PAGE 1 ? Signed Report ? Procedure Note Thony Donato MD - 02/26/2019 EXAM: RADIOLOGY EXPRESS CARE/EXP CARE SHARI EX. D/ (1232) CLINICAL INFORMATION: R05 COUGH EXAM: XR Chest, 2 Views EXAM DATE/TIME: 05/24/2018 12:25 PM CLINICAL HISTORY: 47 years old, male; Signs and symptoms; Cough; Additional info: R05 cough TECHNIQUE: XR of the chest, 2 views. COMPARISON: No relevant prior studies available. FINDINGS: Lungs: Unremarkable. No consolidation. Pleural space: Unremarkable. No pleural effusion. No pneumothorax. Heart/Mediastinum: Unremarkable. No cardiomegaly. Bones/joints: Unremarkable. IMPRESSION: No acute findings. REPORT SIGNED IN OTHER VENDOR SYSTEM 05/24/2018 Reported By: Thony Donato MD CC: Transcribed Date/Time: 05/24/2018 (9268) Pharmacy Specialist: Printed Date/Time: 10/12/2018 (7800) PAGE 1 Signed Report Christel Pearl MD IMG DIAGNOSTIC IMAGI NG ORDERABLES documented in this encounter Visit Diagnoses Not on filedocumented in this encounter Care Teams Billet Heater Operator Relationship Specialty Start Date End Date Deonte Esparza MD PCP - General 10/26/15 documented as of this encounter
--- OUTSIDE RECORDS SUMMARY | 2023-12-12 08:13 | XMS_ITS | Encounter Summary ---
Author Organization [facility] Address [address] [place] [address] Care Team Providers Care Computerized Table Cutter Name Role Phone Christel Mishra MD Primary Care Provider [phone] Reason for Referral * Radiology Services (Routine) - Closed Specialty Diagnoses / Procedures Referred By Estuardo juarez Referred To Contact Diagnoses Low back pain, unspecified back pain laterality, unspecified chronicity, with sciatica presence unspecified Procedures L SPINE 4 OR MORE VIEWS Brad Rios PA-C [address] [place] [phone] Referral ID Status Reason Start Date Expiration Date Visits Re quested Visits Authorized [id number] Closed 10/18/2015 1 1 Encounter Details Date Type Department Care Team (Late st Contact Info) Description 10/18/2015 Orders Only [facility] Spine Program [place] [address] [place] [address] Brad Rios PA-C [address] [place] [phone] Low back pain, unspecified back pain laterality, unspecified chronicity, with sciatica presence unspecified (Primary Dx) Social History Tobacco Use Types Packs/Day Years Used Date Smoking Tobacco: Never Assessed Sex and Gender Information Value Date Recorded Sex Assigned at Not on file Gender Identity Not on file Sexual Orientation Not on file documented as of this encounter Plan of Treatment Not on file documented as of this encounter Procedures Procedure Name Priority Date/Time Associated Diagnosis Comments L SPINE 4 OR MORE VIEWS Routine 10/27/2015 13:48 EDT Low back pain, unspecified back pain laterality, unspecified chronicity, with sciatica presence unspecified documented in this encounter Results * L SPINE 4 OR MORE VIEWS (10/27/2015 13:48 EDT) Anatomical Region Laterality Modality Other 10/27/2015 13:4 8 EDT 10/27/2015 15:31 EDT Narrative 10/27/2015 15:31 EDT Plain film lumbar spine October 27, 2015. Comparison: ??MR 2015 History: 45-year-old male with low back pain Findings: Frontal, lateral and lateral flexion-extension views of lumbar spine reveal no evidence of fracture. There is minimal retrolisthesis of L4 upon L5, stable with positioning. Multilevel disc space narrowing is seen, most pronounced at L2-L3, L3-L4 and L4-L5. Facet arthropathy is most pronounced at L4-L5 and L5-S1. Impression: 1. There is minimal retrolisthesis of L4 upon L5, stable with positioning. 2. Degenerative changes of the lumbar spine are most pronounced at L2-L3, L3-L4 and L4-L5 Procedure Note Fredis Nolan MD - 10/27/2015 Plain film lumbar spine October 27, 2015. Comparison: MR 2015 History: 45-year-old male with low back pain Findings: Frontal, lateral and lateral flexion-extension views of lumbar spine reveal no evidence of fracture. There is minimal retrolisthesis of L4 upon L5, stable with positioning. Multilevel disc space narrowing is seen, most pronounced at L2-L3, L3-L4 and L4-L5. Facet arthropathy is most pronounced at L4-L5 and L5-S1. Impression: 1. There is minimal retrolisthesis of L4 upon L5, stable with positioning. 2. Degenerative changes of the lumbar spine are most pronounced at L2-L3, L3-L4 and L4-L5 Brad Rios PA-C IMG DIAGNOSTIC IMAGING ORDERABLES documented in this encounter Visit Diagnoses Diagnosis Low back pain, unspecified back pain laterality, unspecified chronicity, with sciatica presence unspecified- Primary documented in this encounter Care Teams Computerized Table Cutter Relationship Specialty Start Date End Date Christel Mishra MD [address] [place] [phone] PCP - General 02/26/15 10/25/15 documented as of this encounter
--- OUTSIDE RECORDS SUMMARY | 2023-12-12 08:14 | XMS_ITS | Continuity of Care Document ---
Author Organization [facility] Address [address] [place] [address] Assessment No assessment recorded. Plan of Treatment Reminders Order Date Submit Date Provider Last Modified By Organization Details Last Modified Time Details Appointments Nurse Visit 2023 07:30A M Not available Not available Not available Follow Up 2023 08:00A M Not available Not available Not available Lab venipunct ure 2023 024 [facility] (Registration ), [address] [place] [address], [place], [address], 12/12/2023 07:35:17 Referral None recorded. Procedures None recorded. Surgeries None recorded. Imaging None recorded. Medication Orders None recorded. Patient TargetsNo targets recorded. Patient InstructionsNo instructions recorded. Reason for Referral None Reported. Problems Name Status Onset Date Resolution Date Notes Provider Name and Address Organization Details Recorded Time Essential hypertension Active 2014 Anastasia vargas [facility] 4 15:21:45 Intervertebra l disc disorder Active 2015 Anastasia vargas [facility] 4 15:19:17 History of male genital disorder Completed 201512/26/2022 Problem Code: Z87.438; Problem Code Type: ICD-10; Not Available [facility] 4 05:36:50 Nicotine dependence Active 2016 Smoker -- started in 1985. 1 pack/day. 33-year pack history Anastasiakyler vargas [facility] 4 15:20:50 Otitis media Completed 201703/06/2018 02/20/2018 - Comments only - Elisabeth Burdick APRN - -sx improved on clarithromyci n. pt advised to complete full course of ABX -CONTINUE dramamine for dizziness prn -note for work given -RTC if sx worsen/persis t. Problem Code: H66.90; Problem Code Type: ICD-10; Not Available [facility] 3 05:15:00 Disorder of right Eustachian tube Completed 201704/10/2018 03/11/2018 - Comments only - Deonte Esparza MD - Explained path to patient and to use neti pot. Went over signs sinus infection Problem Code: H69.91; Problem Code Type: ICD-10; Not Available [facility] 3 05:15:00 Lateral epicondylitis of left humerus Completed 201706/11/2018 03/11/2018 - Comments only - Deonte Esparza MD - Tennis elbos strap and use ibuprofen tid Problem Code: M77.12; Problem Code Type: ICD-10; Not Available [facility] 3 05:15:00 Pain in finger of left hand Completed 201706/11/2018 03/11/2018 - Comments only - Deonte Esparza MD - Resolving, xray if reoccurs-may be arthritis versus overuse given epicondylitis Problem Code: M79.645; Problem Code Type: ICD-10; Not Available [facility] 3 05:15:00 Pain of left shoulder joint Completed 201812/26/2022 Problem Code: M25.512; Problem Code Type: ICD-10; Not Available [facility] 4 05:36:50 Adult health examination Completed 201806/25/2023 10/21/2019 - Comments only - Meena Salazar APRN, GAS EXAMINER- - -Follow-up in 3 months for annual exam, and check of hypertension. -Labs to be drawn at that visit: Lipids, BMP, A1c (given family history of diabetes and history of elevated blood glucose). Problem Code: Z00.00; Problem Code Type: ICD-10; FROILAN Ke[facility] - [facility] 4 15:17:59 Hyperlipidemi a Active 2019 [facility] 4 15:19:04 Screening for malignant neoplasm of colon Completed 201908/03/2020 Problem Code: Z12.11; Problem Code Type: ICD-10; Not Available [facility] 3 05:15:01 Localized eruption of skin Completed 201903/16/2020 Problem Code: R21; Problem Code Type: ICD-10; Not Available [facility] 3 05:15:01 Diverticulosi s of large intestine Active 2020 Diverticular disease of colon [facility] 4 14:04:27 Obesity Active 2020 Class I [facility] 4 15:21:06 Viral screening Active 2020 Screening for hepatitis C [facility] 4 14:04:49 Prediabetes Active 2020 [facility] 4 15:21:14 Abdominal pain Completed 202103/22/2022 Problem Code: R10.9; Problem Code Type: ICD-10; Not Available [facility] 3 05:15:01 Pain in thoracic spine Completed 202107/06/2022 Problem Code: M54.89; Problem Code Type: ICD-10; Not Available [facility] 3 05:15:02 Pain in thoracic spine Completed 200310/14/2017 Problem Code: M54.89; Problem Code Type: ICD-10; Not Available [facility] 3 05:15:06 Tobacco dependence syndrome Completed 200301/16/2023 Not Available [facility] 3 05:15:08 Delay when starting to pass urine Completed 201503/11/2018 Problem Code: R39.11; Problem Code Type: ICD-10; Not Available [facility] 3 05:15:15 Obesity Completed 200310/14/2017 Problem Code: E66.9; Problem Code Type: ICD-10; [facility] 4 15:21:06 Tobacco user Completed 200310/14/2017 Problem Code: Z72.0; Problem Code Type: ICD-10; Not Available [facility] 3 05:15:15 Right side sciatica Completed 201501/04/2016 Problem Code: M54.31; Problem Code Type: ICD-10; Not Available [facility] 3 05:15:21 Traumatic or non-traumatic injury Completed 201401/04/2016 Problem Code: T14.90; Problem Code Type: ICD-10; Not Available [facility] 3 05:15:23 Chronic pain syndrome Completed 200301/16/2023 Problem Code: 338.4; Problem Code Type: ICD-9; Not Available [facility] 3 05:15:23 Lumbosacral radiculopathy Completed 201501/04/2016 Problem Code: M54.16; Problem Code Type: ICD-10; Not Available [facility] 3 05:15:27 Acute prostatitis Completed 201501/16/2023 02/13/2016 - Comments only - Deonte Esparza MD - resolved Problem Code: N41.0; Problem Code Type: ICD-10; Not Available [facility] 3 05:15:32 Acute bronchitis Completed 201610/14/2017 Problem Code: J20.9; Problem Code Type: ICD-10; Not Available [facility] 3 05:15:35 Screening for malignant neoplasm of prostate Active 2022 [facility] 4 14:04:45 HIV screening Active 2022 [facility] 4 14:04:37 Problem Notes None recorded. Medical Equipment None Reported. Allergies Allergen ID Allergen Name Allergen Category Reaction Reaction Severity Criticality Documentation Date Start Date Code Code System Note Provider Name and Address Organization Details Recorded Time 47254 Medicinal product containin g penicilli n and acting as antibacte rial agent (product) medicatio n hives moderate Not available 03/01/20232003 48623 05 SNOMED hives ? Anastasia vargas [facility] 4 15:22:38 Medications Name Sig Start Date Stop Date Status Note LastModified by Organization Details LastModified Time Dramamine 50 mg tablet 1 tab po prn dizzines s 03/02 completed pt got otc Not Available Not Available Not Available atorvasta tin 40 mg tablet Take 1 tablet by mouth every night active Not Available Not Available No t Available clarithro mycin 500 mg tablet 1 tab po bid x10 days 02/27 completed started by urgent care Not Available Not Available Not Available Nicoderm CQ 21 mg/24 hr daily transderm al patch Apply 1 patch external ly daily to hairless area. Rotate skin sites 02/02 completed Not Available Not Available Not Available prednison e 20 mg tablet take 2 tabs PO QD x 5 days 08/14 completed Not Available Not Available Not Available Zithromax 250 mg tablet Take 2 by mouth today, then take 1 by mouth daily x 4 days 09/10 completed Not Available Not Available Not Available amlodipin e 5 mg tablet Take 1 tablet by mouth once a day active Not Available Not Available No t Available Diovan 320 mg tablet 1 po qd 02/20 completed Not Available Not Available Not Available IBU 600 mg tablet Take 1 tablet by mouth three times a day as needed active Not Available Not Available No t Available diazepam 2 mg tablet Qid prn 02/20 completed Not Available Not Available Not Available lisinopri l 10 mg tablet 1CAP daily 06/29 completed Not Available Not Available Not Available hydrochlo rothiazid e 12.5 mg capsule Take 1 capsule by mouth every morning active Not Available Not Available No t Available gabapenti n 300 mg capsule Take 1-2 capsule by mouth twice a day as needed active Not Available Not Available No t Available mupirocin 2 % topical ointment Apply twice a day 03/08 completed Not Available Not Available Not Available irbesarta n 300 mg tablet TAKE 1 TABLET BY MOUTH EVERY DAY active Not Available Not Available No t Available diazepam 5 mg tablet 1 po qHS prn 09/27 completed Not Available Not Available Not Available valsartan 160 mg tablet take 1 tablet by mouth daily 03/12 completed Not Available Not Available Not Available Bactrim DS 800 mg-160 mg tablet Take 1 tab by mouth twice daily 09/05 completed Not Available Not Available Not Available nicotine 4 mg gum Chew 1 09/07 completed Not Available Not Available Not Available Aleve 06/29 completed Not Available Not Available Not Available Albuterol Sulfate HFA 2 qid 04/02 completed Not Available Not Available Not Available Vitals None Recorded Social History Question Answer Notes LastModified by Organizat ion Details LastModified Time Tobacco Smoking Status Current Every Day Smoker WILLOW SUNG [facility], [facility] 06/26/2023 17:47:58 How Much Tobacco Do You Smoke? 1 PPD [email or web address] Information not available 06/26/2023 Sex: Male Functional Status None recorded. Mental Status None recorded. Family History Relationship Description Onset Age of this Age Resolved Age Notes Notes:*Problem: Significant for early coronary artery disease involving several grandparents. There is also history of diabetes in 2 uncles. mom had breast cancer, has depression/anxiety, CAD,HLD,DM Mgrandfather stroke PGTF heart attack maternal uncle of heart attack 2019 Unsure if anyone in his family had prostate cancer. Medical History No medical history recorded. Immunizations Vaccine Type Date Status Provider Name and Address Organization Details Recorded Time COVID-19, mRNA, LNP-S, PF, bubba-sucrose, 30 mcg/0.3 mL 06/26/2023 completed LAVELLE SULTANA [address], [place], [address], [facility] 06/26/2023 18:34:53 Influenza, split virus, quadrivalent, PF 06/26/[address], [place], [address], [facility], [facility], [facility]. 06/26/2023 18:34:53 Tdap 03/18/2013 completed Not Available [facility] 05:34:18 Td(adult) unspecified formulation 12/19/1990 completed Not Available [facility] 03/01/2023 05:34:18 Influenza, split virus, quadrivalent, PF 12/24/2015 completed Not Available [facility] 03/01/2023 05:34:18 Influenza, split virus, quadrivalent, PF 01/05/2019 completed Not Available [facility] 03/01/2023 05:34:19 Influenza, split virus, quadrivalent, PF 01/19/2021 completed Not Available [facility] 03/01/2023 05:34:19 Influenza, split virus, quadrivalent, PF 02/03/2020 completed Not Available [facility] 03/01/2023 05:34:19 Influenza, split virus, quadrivalent, PF 03/08/2022 completed Not Available [facility] 03/01/2023 05:34:19 Influenza, split virus, quadrivalent, preservative 02/20/2018 completed Not Available [facility] 03/01/2023 05:34:19 zoster recombinant 01/19/2021 completed Not Available [facility] 03/01/2023 05:34:20 zoster recombinant 02/03/2020 completed Not Available [facility] 03/01/2023 05:34:20 COVID-19, mRNA, LNP-S, PF, 100 mcg/0.5mL dose or 50 mcg/0.25mL dose 09/05/2020 completed Not Available [facility] 03/01/2023 05:34:21 COVID-19, mRNA, LNP-S, PF, 100 mcg/0.5mL dose or 50 mcg/0.25mL dose 09/07/2021 completed Not Available [facility] 03/01/2023 05:34:21 COVID-19, mRNA, LNP-S, PF, 100 mcg/0.5mL dose or 50 mcg/0.25mL dose 10/03/2020 completed Not Available [facility] 03/01/2023 05:34:21 COVID-19, mRNA, LNP-S, PF, 100 mcg/0.5mL dose or 50 mcg/0.25mL dose 04/06/2021 completed Not Available [facility] 03/01/2023 05:34:21 pneumococcal polysaccharide PPV23 02/20/2018 completed Not Available [facility] 2022 05:34:22 influenza, unspecified formulation 01/21/1996 completed Not Available [facility] 03/01/2023 05:34:22 Tdap 12/26/2022 completed Not Available [facility] 05:33:09 Pneumococcal conjugate PCV20, polysaccharide [id number] conjugate, adjuvant, PF 12/26/2022 completed Not Available [facility] 05/03/2023 05:33:09 Past Encounters Encounter ID Performer Location Encounter Start Date Encounter Closed Date Diagnosis/Indication Diagnosis SNOMED-CT Code [id number] WILLOW SUNG [place] [address] [address] 12/12/2023 07:15:06 12/12/2023 07:32:40 Essential hypertension [id number] Health Concerns Section Related Observation LastModified by Organization Detai ls LastModified Time None Recorded Concern Status LastModified by Organization Details LastModified Time None Recorded Payers Encounter Date Sequence Insurance Name Policy Number Policy Ennis Covered Member ID Ennis Member ID Guarantor Name 12/12/2023 1 [facility] [id number] Bull Walsh [id number] Bull Walsh
--- OUTSIDE RECORDS SUMMARY | 2023-12-12 08:14 | XMS_ITS | Data Portability ---
Author Organization [place] - [facility] Address [address] [place] [address] Assessment No assessment recorded. Plan of Treatment Reminders Order Date Submit Date Provider Last Modified By Organization Details Last Modified Time Details Appointments Nurse Visit 2023 07:30A M Not available Not available Not available Follow Up 30 2023 08:00A M Not available Not available Not available Lab microalbu min/creat inine, ratio, urine 2023 024 grey [email or web address] [facility] (Registration ), [address] [place] [address] [place], [address], 09/04/2023 07:49:06 venipunct ure 2023 024 ATHENAFAX [facility] (Registration ), [address] [place] [address] [place], [address], 12/12/2023 07:35:17 Referral None recorded. Procedures None recorded. Surgeries None recorded. Imaging None recorded. Medication Orders None recorded. Patient TargetsNo targets recorded. Patient Instructions Encounter Date Encounter Id Patient Instructions Last Modified By Organization Details Last Modified Time 06/26/2023 [id number] Bull? use the handouts -eat this not that- aim for moderate weight loss - like 20-25 pounds, add a 20 minute non-working walk to your day every day Think about stopping smoking, let me know when you are ready and I will send you some prescriptions. Look at the 802? quits website for tips and tricks for successful smoking cessation There is a great program in our community called the Health Coaching for Hypertension Control workshop. The workshop meets online for 1 ?? hours per week for 9 weeks and teaches you small lifestyle changes that can help to manage and control your high blood pressure . For more information contact Trinh Benjamin at [phone] ext. [phone] or go to [email or web address] There is another great program in our community called The Diabetes Prevention Program (DPP). It is a year long program that teaches you to make small changes that cut your risk of type 2 diabetes by more than half. For more information contact Trinh Benjamin at [phone] ext. [phone] or go to [email or web address] Not available 06/26/2023 18:14:36 Preventive care -Immz, flu and covid today -Colonoscopy is UTD - done 2020, due rpt 2025 -Lung ca screen - offered, declined -Prostate cancer screening? - I discussed the potential benefits and harms of prostate cancer screening with the patient. He is at average risk and has a >10-15 year life expectancy. His preference is to screen. [email or web address] Not available 06/26/2023 18:18:39 08/28/2023 [id number] Bull? BP is BETTER! Not yet to goal (<130/80) use the handouts -eat this not that- aim for moderate weight loss - like 20-25 pounds, add a 30 minute non-working walk to your day every day Think about stopping smoking, let me know when you are ready and I will send you some prescriptions. Look at the 802? quits website for tips and tricks for successful smoking cessation There is a great program in our community called the Health Coaching for Hypertension Control workshop. The workshop meets online for 1 ?? hours per week for 9 weeks and teaches you small lifestyle changes that can help to manage and control your high blood pressure . For more information contact Trinh Benjamin at [phone] ext. [phone] or go to [email or web address] There is another great program in our community called The Diabetes Prevention Program (DPP). It is a year long program that teaches you to make small changes that cut your risk of type 2 diabetes by more than half. For more information contact Trinh Benjamin at [phone] ext. [phone] or go to [email or web address] rg see you in 3-4 months! [email or web address] Not available 08/28/2023 16:45:40 Preventive care -Immz, flu and covid today -Colonoscopy is UTD - done 2020, due rpt 2025 -Lung ca screen - offered, declined -Prostate cancer screening? - I discussed the potential benefits and harms of prostate cancer screening with the patient. He is at average risk and has a >10-15 year life expectancy. His preference is to screen. [email or web address] Not available 08/28/2023 11:07:32 Reason for Referral None Reported. Results Created Date Observation Date Name Description Value Unit Range Abnormal Flag LastModifiedBy Organization Detail LastModifiedTime 08/28/19 24 08/28/2023 MICRO ALBUM IN microalbumin 14.3 mg/L 1.30-2 0.0 normal Not Available [address] [place], [address] 08/28/2023 21:50:34 08/28/19 24 08/28/2023 MICRO ALBUM IN creatinine urine 259.93 mg/dL Not Available [address] [place], [address] 08/28/2023 21:50:34 08/28/19 24 08/28/2023 MICRO ALBUM IN microalb ug/mg crea 5.5 ug/mg _cr Not Available [address] [place], [address] 08/28/2023 21:50:34 Result Notes None recorded. Problems Name Status Onset Date Resolution Date Notes Provider Name and Address Organization Details Recorded Time Essential hypertension Active 2014 FROILAN Keita [facility]. 4 15:21:45 Intervertebra l disc disorder Active 2015 FROILAN Keita [facility]. 4 15:19:17 History of male genital disorder Completed 201512/26/2022 Problem Code: Z87.438; Problem Code Type: ICD-10; Not Available [facility] 4 05:36:50 Nicotine dependence Active 2016 Smoker -- started in 1985. 1 pack/day. 33-year pack history FROILAN Keita [facility]. 4 15:20:50 Otitis media Completed 201703/06/2018 02/20/2018 - Comments only - Elisabeth Burdick APRN - -sx improved on clarithromyci n. pt advised to complete full course of ABX -CONTINUE dramamine for dizziness prn -note for work given -RTC if sx worsen/persis t. Problem Code: H66.90; Problem Code Type: ICD-10; Not Available [facility] 3 05:15:00 Disorder of right Eustachian tube Completed 201704/10/2018 03/11/2018 - Comments only - Deonte Esparza MD - Explained path to patient and to use neti pot. Went over signs sinus infection Problem Code: H69.91; Problem Code Type: ICD-10; Not Available [facility] 3 05:15:00 Lateral epicondylitis of left humerus Completed 201706/11/2018 03/11/2018 - Comments only - Deonte Esparza MD - Tennis elbos strap and use ibuprofen tid Problem Code: M77.12; Problem Code Type: ICD-10; Not Available [facility] 3 05:15:00 Pain in finger of left hand Completed 201706/11/2018 03/11/2018 - Comments only - Deonte Esparza MD - Resolving, xray if reoccurs-may be arthritis versus overuse given epicondylitis Problem Code: M79.645; Problem Code Type: ICD-10; Not Available [facility] 3 05:15:00 Pain of left shoulder joint Completed 201812/26/2022 Problem Code: M25.512; Problem Code Type: ICD-10; Not Available [facility] 4 05:36:50 Adult health examination Completed 201806/25/2023 10/21/2019 - Comments only - Meena Salazar APRN, BAG FILLER- - -Follow-up in 3 months for annual exam, and check of hypertension. -Labs to be drawn at that visit: Lipids, BMP, A1c (given family history of diabetes and history of elevated blood glucose). Problem Code: Z00.00; Problem Code Type: ICD-10; [facility] 4 15:17:59 Hyperlipidemi a Active 2019 [facility] 4 15:19:04 Screening for malignant neoplasm of colon Completed 201908/03/2020 Problem Code: Z12.11; Problem Code Type: ICD-10; Not Available [facility] 3 05:15:01 Localized eruption of skin Completed 201903/16/2020 Problem Code: R21; Problem Code Type: ICD-10; Not Available [facility] 3 05:15:01 Diverticulosi s of large intestine Active 2020 Diverticular disease of colon [facility] 4 14:04:27 Obesity Active 2020 Class I [facility] 4 15:21:06 Viral screening Active 2020 Screening for hepatitis C [facility] 4 14:04:49 Prediabetes Active 2020 [facility] 4 15:21:14 Abdominal pain Completed 202103/22/2022 Problem Code: R10.9; Problem Code Type: ICD-10; Not Available [facility] 3 05:15:01 Pain in thoracic spine Completed 202107/06/2022 Problem Code: M54.89; Problem Code Type: ICD-10; Not Available [facility] 3 05:15:02 Pain in thoracic spine Completed 200310/14/2017 Problem Code: M54.89; Problem Code Type: ICD-10; Not Available [facility] 3 05:15:06 Tobacco dependence syndrome Completed 200301/16/2023 Not Available [facility] 3 05:15:08 Delay when starting to pass urine Completed 201503/11/2018 Problem Code: R39.11; Problem Code Type: ICD-10; Not Available [facility] 3 05:15:15 Obesity Completed 200310/14/2017 Problem Code: E66.9; Problem Code Type: ICD-10; [facility] 4 15:21:06 Tobacco user Completed 200310/14/2017 Problem Code: Z72.0; Problem Code Type: ICD-10; Not Available [facility] 3 05:15:15 Right side sciatica Completed 201501/04/2016 Problem Code: M54.31; Problem Code Type: ICD-10; Not Available [facility] 3 05:15:21 Traumatic or non-traumatic injury Completed 201401/04/2016 Problem Code: T14.90; Problem Code Type: ICD-10; Not Available [facility] 3 05:15:23 Chronic pain syndrome Completed 200301/16/2023 Problem Code: 338.4; Problem Code Type: ICD-9; Not Available [facility] 3 05:15:23 Lumbosacral radiculopathy Completed 201501/04/2016 Problem Code: M54.16; Problem Code Type: ICD-10; Not Available [facility] 3 05:15:27 Acute prostatitis Completed 201501/16/2023 02/13/2016 - Comments only - Deonte Esparza MD - resolved Problem Code: N41.0; Problem Code Type: ICD-10; Not Available [facility] 3 05:15:32 Acute bronchitis Completed 201610/14/2017 Problem Code: J20.9; Problem Code Type: ICD-10; Not Available [facility] 3 05:15:35 Screening for malignant neoplasm of prostate Active 2022 [facility] 4 14:04:45 HIV screening Active 2022 [facility] 4 14:04:37 Problem Notes None recorded. Medical Equipment None Reported. Allergies Allergen ID Allergen Name Allergen Category Reaction Reaction Severity Criticality Documentation Date Start Date Code Code System Note Provider Name and Address Organization Details Recorded Time 86370 Medicinal product containin g penicilli n and acting as antibacte rial agent (product) medicatio n hives moderate Not available 03/01/20232003 97508 05 [facility]ED hives [facility] 15:22[facility]38 Medications Name Sig Start Date [...] Not Available Not Available Not Available Vitals Date Recorded Body height Body mass index (BMI) Body weight Body temperature Oxygen saturation Oxygen saturation in Arterial blood by Pulse oximetry Heart rate Systolic blood pressure Diastolic blood pressure Provider Name and Address Organization Details Last Updated DateTime 4 183.997 6 cm 35.6 kg/m2 978151. 57 g 97.7 [degF] 96 % 96 % 64 /min 180 mm[Hg] 92 mm[Hg] KAISER SUNG MA [facility] 4 17:50:58 Date Recorded Body height Body mass index (BMI) Body weight Oxygen saturation Oxygen saturation in Arterial blood by Pulse oximetry Heart rate Systolic blood pressure Diastolic blood pressure Provider Name and Address Organization Details Last Updated DateTime 4 183.997 6 cm 34.8 kg/m2 036281. 58 g 94 % 94 % 69 /min 142 mm[Hg] 82 mm[Hg] JORGE CLAY RN [facility] 4 16:29:24 Social History Question Answer Notes LastModified by Organizat ion Details LastModified Time Tobacco Smoking Status Current Every Day Smoker WILLOW SUNG MA null, [facility] 06/26/2023 17:47:58 How Much Tobacco Do You Smoke? 1 PPD [email or web address] Information not available 06/26/2023 Sex: Male Functional [...] 30 mcg/0.3 mL 06/26/[address], [place], [address], [facility] 06/26/2023 18:34:53 Influenza, split virus, quadrivalent, PF 06/26/[address], [place], [address], [facility] 06/26/2023 18:34:53 Tdap 03/18/2013 completed Not Available [facility] 05:34:18 Td(adult) unspecified formulation 12/19/1990 completed Not Available [facility] 03/01/2023 05:34:18 Influenza, split virus, quadrivalent, PF 12/24/2015 completed Not Available [facility] 03/01/2023 05:34:18 Influenza, split virus, quadrivalent, PF 01/05/2019 completed Not Available [facility] 03/01/2023 05:34:19 Influenza, split virus, quadrivalent, PF 01/19/2021 completed Not Available [facility] 03/01/2023 05:34:19 Influenza, split virus, quadrivalent, PF 02/03/2020 completed Not Available [facility] 03/01/2023 05:34:19 Influenza, split virus, quadrivalent, PF 03/08/2022 completed Not Available [facility] 03/01/2023 05:34:19 Influenza, split virus, quadrivalent, preservative 02/20/2018 completed Not Available [facility] 03/01/2023 05:34:19 zoster recombinant 01/19/[address] [facility] 03/01/2023 05:34:20 zoster recombinant 02/03/[address] [facility] 03/01/2023 05:34:20 COVID-19, mRNA, LNP-S, PF, 100 mcg/0.5mL dose or 50 mcg/0.25mL dose 09/05/2020 completed Not Available [facility] 03/01/2023 05:34:21 COVID-19, mRNA, LNP-S, PF, 100 mcg/0.5mL dose or 50 mcg/0.25mL dose 09/07/2021 completed Not Available [facility] 03/01/2023 05:34:21 COVID-19, mRNA, LNP-S, PF, 100 mcg/0.5mL dose or 50 mcg/0.25mL dose 10/03/2020 completed Not Available [facility] 03/01/2023 05:34:21 COVID-19, mRNA, LNP-S, PF, 100 mcg/0.5mL dose or 50 mcg/0.25mL dose 04/06/2021 completed Not Available [facility] 03/01/2023 05:34:21 pneumococcal polysaccharide PPV23 02/20/2018 completed Not Available [facility] 2022 05:34:22 influenza, unspecified formulation 01/21/1996 completed Not Available [facility] 03/01/2023 05:34:22 Tdap 12/26/2022 completed Not Available [facility] 05:33:09 Pneumococcal conjugate PCV20, polysaccharide LOM122 conjugate, adjuvant, PF 12/26/2022 completed Not Available [facility] 05/03/2023 05:33:09 Past Encounters Encounter ID Performer Location Encounter Start Date Encounter Closed Date Diagnosis/Indication Diagnosis SNOMED-CT Code [id number] RUSTY WOLFE [address] [address] 06/26/2023 17:41:25 06/26/2023 18:22:06 Essential hypertension 25805273 Active or passive immunization [id number] LAVELLE SULTANA [address] [address] 08/28/2023 16:13:24 08/28/2023 16:51:20 Essential hypertension 17235621 [id number] WILLOW SUNG MA [address] [address] 12/12/2023 07:15:06 12/12/2023 07:32:40 Essential hypertension 34358928 Health Concerns Section Related Observation LastModified by Organization Detai ls LastModified Time None Recorded Concern Status LastModified by Organization Details LastModified Time None Recorded Advance Directives Directive None Recorded Payers Encounter Date Sequence Insurance Name Policy Number Policy Ennis Covered Member ID Ennis Member ID Guarantor Name 06/26/2023 1 [facility] [id number] Bull Walsh [id number] Bull Walsh 08/28/2023 1 [facility] [id number] Bull Walsh [id number] Bull Walsh 12/12/2023 1 [facility] [id number] Bull Walsh [id number] Bull Walsh Notes Date Note Type Note Provider Name and Address Organization Details Recorded Time 06/26/2023 text/html HPI Notes: 6 mo htn f/u shitty winter mom in [place] surgery - some type of philatelic consultant surg last week no exercise hates winter more stress home BPs - does not check diet - eat whenever I want activity - no intentional exercise, 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 06/26/2023 18:37:47 08/28/2023 text/html HPI Notes: 6 wk htn f/u (06/26/23) note: BP well above goal in office today and in review has been above goal about 1/2 OVs over the years, NOT interested in increasing any meds but is minimally open to walking a little more and working on wt loss. Long discussion about risks of undertreated HTN. 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. 09/24/2023 16:25:55
--- OUTSIDE RECORDS SUMMARY | 2023-12-12 08:14 | XMS_ITS ---
Author Organization Unknown Address [address] [place] [address] [phone] Phone Care Team Providers Care Senior Informatica Etl Developer Name Role Phone TERESA Arechiga Attending Unavailable [email or web address] - Nay ect Date/Time: 04/20/2022 10:11 [facility] ID: [id number] [address] [place] [address], [id number] LOINC: 41211-0 Test Value Unit Reference Range Code Code System Flag Tier- STAFF FAMILY 96060-6 LOINC SARS COV2 RNA: NEGATIVE REFERENCE RAN GE: NEGAT 06588-4 LOINC Social History Type Status Start Date End Date Code Code Syst em Smoking History Current every day smoker 04/22/[id number] Sex Male Hospital Discharge Instructions Should you have any questions prior to discharge, please contact a member of your healthcare team. If you have left the hospital and have any questions, please contact your primary care physician. Reason For Referral No Data Found Allergies and Adverse Reactions Allergy Substance Reaction Severity Start Date Concern Status Co de Code System PENICILLIN Active Plan of Treatment Pre-Op Covid-19 Testing 06/13/2020 SYMPTOMS 04/19/2022 CT CHEST W/O CONTRAST 05/29/2022 Encounters Encounter Diagnosis Start Date Code Code Sys tem Exposure to SARS-CoV-2 04/20/2022 [id number] SNOME D-CT Personal Care Team Section Performer Name Performer Role Active Date Inactive Da te
--- OUTSIDE RECORDS SUMMARY | 2023-12-12 08:15 | XMS_ITS ---
Author Organization Unknown Address [address] [place] [phone] Phone Care Team Providers Care Integration Manager Name Role Phone BETTY Pugh Attending Unavailable Results CT LDCT FOR LUNG CA SCREEN - Completed: 05/29/2022 15:25 LOINC: [No content] Social History Type Status Start Date End Date Code Code Syst em Smoking History Current every day smoker 04/22/[id number] Sex Male Hospital Discharge Instructions [...] Diagnosis Start Date Code Code Sys tem Encounter for screening for malignant neoplasm of respiratory organs 05/29/2022 SNOMED-CT Personal Care Team Section Performer Name Performer Role Active Date Inactive Da te
[2023-12-12 15:11] LABS: Hemoglobin A1C 6.3 % (<5.7)
[2023-12-12 15:56] LABS: ALT 42 U/L (16-63); AST 23 U/L (15-37); Alkaline Phosphatase 77 U/L (46-116); Anion Gap 8.9 mmol/L (3-11); BUN 22 mg/dL (7-18); Bilirubin, Total 0.53 mg/dL (0.2-1.0); CO2 27.1 mmol/L (21.0-32.0); CREATININE 1.1 mg/dL (0.70-1.30); Calcium 9.1 mg/dL (8.5-10.1); Calculated LDL 51 mg/dL (<100); Chloride 105 mmol/L (98-107); Cholesterol 118 mg/dL (<200); Estimated GFR 79.77 (mL/min/1.73m2); Glucose 124 mg/dL (74-106); HDL Cholesterol 40 mg/dL (40-60); Potassium 4.3 mmol/L (3.5-5.1); Sodium 141 mmol/L (136-145); Total Protein 7.2 g/dL (6.4-8.2); Triglyceride 138 mg/dL (<150)
== END 2023-12-12 08:13 | disposition home or self-care (01) ==
LOC: NCHCN 08:12
PROVIDERS: PCP Family Medicine; Visit Provider Nurse Practitioner Family
DX: I10 Essential (primary) hypertension (principal); E78.5 Hyperlipidemia, unspecified; E66.9 Obesity, unspecified
CPT/HCPCS: 80053; 80061; 83036

== ENCOUNTER 2024-10-28 21:54 | Outpatient (REF) | payer OTHER, SELFPAY ==
[2024-10-28 22:33] LABS: Hemoglobin A1C 6.5 % (<5.7)
[2024-10-28 22:34] LABS: ALT 44 U/L (16-63); AST 24 U/L (15-37); Albumin 4.3 g/dL (3.4-5.0); Alkaline Phosphatase 82 U/L (46-116); Anion Gap 7.8 mmol/L (3-11); BUN 22 mg/dL (7-18); Bilirubin, Total 0.6 mg/dL (0.2-1.0); CO2 26.2 mmol/L (21.0-32.0); Calcium 9.5 mg/dL (8.5-10.1); Calculated LDL 48 mg/dL (<100); Chloride 102 mmol/L (98-107); Cholesterol 122 mg/dL (<200); Estimated GFR 88.88 (mL/min/1.73m2); Glucose 130 mg/dL (74-106); HDL Cholesterol 44 mg/dL (>or=40); Microalb ug/mg Crea 4.1 ug/mg Cr; Potassium 3.8 mmol/L (3.5-5.1); Sodium 136 mmol/L (136-145); Total Protein 7.6 g/dL (6.4-8.2); Triglyceride 151 mg/dL (<150)
== END 2024-10-28 21:55 | disposition home or self-care (01) ==
LOC: NCHCN 21:54
PROVIDERS: PCP Family Medicine; Visit Provider Nurse Practitioner Family
DX: I10 Essential (primary) hypertension (principal); E78.5 Hyperlipidemia, unspecified; R73.03 Prediabetes
CPT/HCPCS: 80053; 80061; 82043; 82570; 83036